=== PATIENT | female | born 1935 | race Caucasian/White ===

== ENCOUNTER → 2016-06-27 | Outpatient (CLI) | payer OTHER | LOC: BHFA 13:45 | PROVIDERS: ATTEND Internal Medicine Cardiovascular Disease | DX: Z01.810 Encounter for preprocedural cardiovascular examination (principal); I26.99 Other pulmonary embolism without acute cor pulmonale; I10 Essential (primary) hypertension; E78.5 Hyperlipidemia, unspecified; R60.9 Edema, unspecified ==

== ENCOUNTER 2016-07-24 08:15 | Inpatient (IN) | payer OTHER ==
[~2016-07-24 08:15] MED LIST: ACETAMINOPHEN 325 MG TAB PO ONE; CEFAZOLIN 2 GM/DEXTR 100 ML IV ONE; CHLORHEXIDINE GLUC HIBICLENS 118 ML BTL TP ONE; DEXAMETHASONE 4 MG/ML VIAL IVP ONE; FAMOTIDINE 20 MG TAB PO ONE; ROPI/epiNEPH/KETOROLAC JOINT COCKTAIL IU ONE; SKIN ADHESIVE (DERMABOND) 1 EACH TP ONE; TRANEXAMIC ACID 3,000 MG in NS 50 ML IRR ONE; TRANEXAMIC ACID 3,000 MG/50 ML BAG IRR ONE
[2016-07-24] MEDS ORDERED: CEFAZOLIN 2 GM/DEXTROSE/100 ML BAG IV ONE (10:13)
[2016-07-24] MEDS ORDERED: FAMOTIDINE 20 MG TAB ONE (10:13)
[2016-07-24] MEDS ORDERED: DEXAMETHASONE 4 MG/ML VIAL ONE (10:13)
[2016-07-24] MEDS ORDERED: LR 1,000 ML IV ONE (10:20)
[2016-07-24] MEDS ORDERED: MIDAZOLAM 2 MG/2 ML VIAL ONE (10:43)
[2016-07-24] MEDS ORDERED: diphenhydrAMINE 25 MG CAP PO PRN (11:30)
[2016-07-24] MEDS ORDERED: ACETAMINOPHEN 325 MG TAB PO PRN (11:30)
[2016-07-24] MEDS ORDERED: BISACODYL 10 MG SUPP PR PRN (11:30)
[2016-07-24] MEDS ORDERED: ONDANSETRON 4 MG/2 ML VIAL IVP PRN (11:30)
[2016-07-24] MEDS ORDERED: ONDANSETRON DISINTEGRATING 4 MG TAB PO PRN (11:30)
[2016-07-24] MEDS ORDERED: PROMETHAZINE HCL 25 MG/ML INJ IVP PRN (11:30)
[2016-07-24] MEDS ORDERED: DIPHENOXYLATE/ATROPINE LOMOTIL 1 TAB PO PRN (11:30)
[2016-07-24] MEDS ORDERED: LACTULOSE 20 GM/30 ML UDCUP PO PRN (11:30)
[2016-07-24] MEDS ORDERED: POLYETHYLENE GLYCOL 3350 17 GM PKT PO PRN (11:30)
[2016-07-24] MEDS ORDERED: TEMAZEPAM 15 MG CAP PO PRN (11:30)
[2016-07-24] MEDS ORDERED: PROMETHAZINE HCL 25 MG SUPPR PR PRN (11:30)
[2016-07-24] MEDS ORDERED: PHARMACY PAIN CONSULT 1 EA MISC PRN (11:30)
[2016-07-24] MEDS ORDERED: CYCLOBENZAPRINE 10 MG TAB PO PRN (11:30)
[2016-07-24] MEDS ORDERED: METOCLOPRAMIDE 10 MG/2 ML VIAL IVP PRN (11:30)
[2016-07-24] MEDS ORDERED: MAGNESIUM HYDROXIDE 30 ML UDCUP PO PRN (11:30)
[2016-07-24] MEDS ORDERED: PROPOFOL 200 MG/20 ML VIAL ONE (11:42)
--- NOTE | 2016-07-24 12:12 | POSTOPPROG ---
Post Op Note Date of Operation: 07/24/16 Surgeon: Gurmeet Cornell Crystal Cutter: Lisa Cornell PAc Anesthesiologist: Johan Anesthesia: Spinal Pre-op Diagnosis: R hip DJD Post-op Diagnosis: same Indication: pain Procedure: R AMRIT Findings: DJD hip Inf/Abcess present in the surg proc area at time of surgery?: No EBL: 100-500
[2016-07-24] MEDS ORDERED: ONDANSETRON 4 MG/2 ML VIAL ONE (12:34)
[2016-07-24] MEDS: oxyCODONE IR 5 MG TAB PO PRN ×3 (14:14→20:26)
[2016-07-24] MEDS: LR 1,000 ML IV SCH (14:14)
[2016-07-24] MEDS: CARVEDILOL 6.25 MG TAB PO SCH (17:46)
[2016-07-24] MEDS: ceFAZolin 2 GM/DEXTROSE 100 ML IV SCH (17:46)
[2016-07-24] MEDS: FUROSEMIDE 20 MG TAB PO SCH (20:16)
[2016-07-24] MEDS: FAMOTIDINE 20 MG TAB PO SCH (20:22)
[2016-07-24] MEDS: NITROFURANTOIN 100 MG CAP PO SCH (20:22)
[2016-07-24] MEDS: APIXABAN 5 MG TAB PO SCH (20:22)
[2016-07-24] MEDS: SENNOSIDES/DOCUSATE SODIUM TAB PO SCH (20:23)
[2016-07-24] MEDS: POTASSIUM CL 10 MEQ TAB PO SCH (21:12)
--- NOTE | 2016-07-24 22:51 | GOP ---
[f rep st] OPERATIVE REPORT DATE OF OPERATION: 07/24/2016 SURGEON: Amado Cornell MD STATISTICAL ASSISTANT: IBAN Geller ANESTHESIA: Spinal. PREOPERATIVE DIAGNOSIS: Right hip osteoarthritis. POSTOPERATIVE DIAGNOSIS: Right hip osteoarthritis. PROCEDURE PERFORMED: Right total hip arthroplasty. FINDINGS: ESTIMATED BLOOD LOSS: 200 cc. INDICATIONS: The patient has progressively worsening arthritis of the hip which has failed medical management. The patient understands the treatment options including continued non-operative care and has selected surgical intervention. The patient has decided to undergo total hip arthroplasty via the direct anterior approach, understanding the risks of the procedure including , but not limited to, neurovascular injury, infection, persistent pain, component wear and loosening, deep venous thrombosis, pulmonary embolism, limb length inequality, hip instability (including dislocation), and intra-operative fractures. DESCRIPTION OF PROCEDURE: After proper identification of the patient including verification and marking the surgical site, the patient was brought to the operating room and placed in the supine position. All bony prominences were well padded. Anesthesia was induced without complication and intravenous prophylactic antibiotics were administered prior to skin incision. The operative leg was placed in the Trumpf Arch table extension and the well leg in a Yellofin leg goldberg. The patient was prepped and draped in the usual sterile fashion. The C-arm was draped for intra-operative fluoroscopy to check acetabular position, femoral component position including leg length and femoral offset. Attention was then drawn to surgical exposure of the hip. An incision was made with a #10 Bard Bert blade starting 3 cm lateral and 3 cm distal to the anterior superior iliac spine measuring 8-10 cm and coursing distally toward the greater trochanter. The skin and subcutaneous tissues were divided sharply down to the fascia mike. The fascia mike was incised in line with the skin incision exposing the underlying tensor fascia mike muscle. The muscle was bluntly elevated from the fascia and the first extracapsular Cobra retractor was placed laterally at the junction of the superior femoral neck and greater trochanter. The lateral femoral circumflex vessels were identified, cauterized , and divided with the Aquamantys bipolar cautery. The deep investing fascia of the TFL was divided to allow proper mobilization of the muscle preventing damage during the retraction. The reflected head of the rectus femoris muscle was elevated off the anterior hip capsule and a medial Cobra retractor was placed just proximal to the lesser trochanter. The anterior capsulotomy was made sharply from the superolateral acetabulum to the saddle junction of the superior femoral neck and greater trochanter, then coursing inferomedial towards the lesser trochanter. The retractors were then placed in the intracapsular position for femoral neck osteotomy. Corresponding to pre-operative templating, the osteotomy was made with the oscillating saw carefully protecting the greater trochanter and soft tissues. The femoral head was removed from the acetabulum with a corkscrew and confirmed to be severely arthritic with exposed bone, deformity and osteophytes. Similar findings were confirmed in the acetabulum. The Arch table extension was then placed in 40 degrees external rotation. Attention was then drawn to the acetabular preparation. After placement of the anterior and posterior Cobra retractors outside the labrum and intracapsular, the circumferential labrum was removed sharply. The foveal contents were then removed and hemostasis obtained with cautery. The first reamer selected was sized using the removed femoral head. Reaming began with medialization and then commenced in 2 mm increments at 45 degrees of abduction and 15 degrees of anteversion using fluoroscopic navigation. Reaming ceased 1 mm less than the definitive acetabular component and corresponded to the pre-operative templating. The final acetabular component was inserted using fluoroscopy to achieve proper orientation yielding excellent purchase and stability in the acetabulum. The final acetabular liner was then placed and its seating confirmed. Attention was then turned to the femur. The Arch table extension was placed in extension and adduction, delivering the osteotomized femoral neck into the wound. A 2-pronged femoral elevator was placed at the calcar and another at the tip of the greater trochanter. The posterolateral capsule was released with cautery allowing mobilization of the femur lateral and anterior for preparation. The external rotators were visualized and preserved. A curette and rongeur were used to open the starting point for broaching. Serial broaching started with the #0 broach and ended with the broach that exhibited excellent fit in the proximal femur. A change in pitch during mallet strikes was accompanied by the inability to advance the broach any further. The trial reduction was performed and fluoroscopic navigation was utilized to check limb length. Adjustments were made to equalize limb length accordingly. After the final trials were accepted they were removed and the wound was copiously lavaged. The femoral component was seated to the same depth as the final broach and the femoral head was impacted onto the clean trunnion. The hip was then reduced for the final time and once more fluoroscopy was used to check that limb length equality was achieved. The wound was irrigated and closed in layers, the fascia mike with 2-0 Quill, the subcutaneous tissue with 2-0 Quill, and the skin with Dermabond. Sterile dressings were applied. Final sharps and sponge counts were accurate. The patient was then transferred to a hospital bed and brought to the recovery room in stable condition. IMPLANTS: Accolade II size 3 at 127, acetabular component a 52 mm Tritanium. The liner is a Trident X3 32 mm. The head is a Biolox Delta 32 mm +0. /[id number]/MODL MTDD
[2016-07-25] MEDS: LR 1,000 ML IV SCH (00:28)
[2016-07-25] MEDS: ceFAZolin 2 GM/DEXTROSE 100 ML IV SCH (00:29)
[2016-07-25] MEDS: oxyCODONE IR 5 MG TAB PO PRN (04:32)
[2016-07-25 05:51] LABS: HEMATOCRIT 30.3 % (38.0-47.0); HEMOGLOBIN 9.9 g/dL (12.6-16.3)
[2016-07-25 06:03] LABS: CALCIUM 8.8 mg/dL (8.5-10.4); CARBON DIOXIDE 23 mEq/l (22-31); CHLORIDE 110 mEq/L (97-110); CREATININE 1.1 mg/dL (0.6-1.0); GLOMERULAR FILTRATION RATE 48; GLUCOSE 87 mg/dL (70-100); SODIUM 140 mEq/L (134-144)
[2016-07-25 06:04] LABS: ANION GAP 7 mEq/L (8-16); POTASSIUM 3.8 mEq/L (3.5-5.2)
--- NOTE | 2016-07-25 09:11 | SOAPPROG ---
SOAP Progress Note Assessment/Plan: Assessment: Patient is doing well POD 1 s/p R AMRIT 1.Pain management: pain is well controlled on oral pain meds, encouraged patient to decrease oxycodone due to nausea issues. patient states pain is greatly improved compared to before surgery. 2.Anemia: level is expected initially postop. Asymptomatic. Cont to monitor for symptoms 3.VTE ppx: recommend resume eliquis daily. Cont THADDEUS mirelese and SCD 4. d/c planning: d/c to home with home health most likely tomorrow pending release from PT and improvement in nausea. If she improves today, may d/c to home this afternoon/evening. Spoke with ROSHAN Armenta, she will keep us posted. 5. nausea: recommend zofran. patient must be able to tolerate food and nausea resolved before d/c Plan: 07/25/16 09:08 07/25/16 09:10 Subjective: Em is having difficulty with nausea, states no pain, denies SOB and chest pain. Objective: Vital Signs Temp Pulse Resp BP Pulse Ox 36.4 C 66 17 118/56 L 93 07/25/16 07:52 07/25/16 07:52 07/25/16 07:52 07/25/16 07:52 07/25/16 07:52 Laboratory Results 07/25/16 04:17 07/25/16 04:17 07/24/16 07/25/16 07/26/16 05:59 05:59 05:59 Intake Total 1900 Output Total 1575 200 Balance 325 -200 RLE: incision dressing is clean and dry, NVI, +pf/df ICD10 Worksheet Patient Problems: Problems Problem Status Onset Primary localized osteoarthritis of right hip Acute Hypertension Chronic
[2016-07-25] MEDS: CARVEDILOL 6.25 MG TAB PO SCH ×2 (11:43→17:34)
[2016-07-25] MEDS: SENNOSIDES/DOCUSATE SODIUM TAB PO SCH ×2 (11:44→20:04)
[2016-07-25] MEDS: FAMOTIDINE 20 MG TAB PO SCH ×2 (11:44→20:04)
[2016-07-25] MEDS: POTASSIUM CL 10 MEQ TAB PO SCH ×2 (11:45→20:02)
[2016-07-25] MEDS: APIXABAN 5 MG TAB PO SCH ×2 (11:45→20:03)
[2016-07-25] MEDS: FUROSEMIDE 20 MG TAB PO SCH ×2 (11:45→20:02)
[2016-07-25] MEDS ORDERED: traMADol 50 MG TAB PO PRN (19:02)
[2016-07-25] MEDS: NITROFURANTOIN 100 MG CAP PO SCH (20:03)
[2016-07-26 05:31] LABS: HEMATOCRIT 30.2 % (38.0-47.0); HEMOGLOBIN 9.9 g/dL (12.6-16.3)
[2016-07-26 09:04] VITALS: PULSE 91; RESP 16; TEMP 97.7; O2SAT 93
[2016-07-26 09:39] VITALS: BP 98/49
--- NOTE | 2016-07-26 10:58 | PDFACE2FAC ---
Face to Face Encounter 1. I certify that this patient is under my care and that I, or a nurse practitioner or physician's trust manager assistant working with me, had a diav-uz-inni encounter that meets the physician [id number] encounter requirements with this patient on 07/26/16. 2. I certify that based on my findings, the following services are medically necessary home health services: [X Nursing] [X Physical Therapy] [ Speech-Language Pathology] 3. The medical condition and clinical findings that support the need for specialized skills, knowledge and judgement of the above services are: [s/p post R AMRIT using front wheel walker, limited ambulation] 4. I certify this patient is homebound* because [the patient's condition restricts their ability to leave their home except with the assistance of another individual or the aid of a supportive device.] must use front wheel walker I certify that this patient is confined to his/her home and needs intermittent halfway care, physical and/or speech therapy. This patient is under my care and I have authorized home health services. * Homebound is defined by Medicare as follows: absences from home require considerable and tacking effort and or for medical reasons or judaism services or are infrequent or of short duration when for other reasons*.
--- NOTE | 2016-07-26 11:01 | PDIAF ---
- Diagnosis Diagnosis: s/p R AMRIT due to hip OA Code Status: Full Code - Medication Management Discharge Medications: Medications to Continue on Transfer Carvedilol [Coreg (*)] 12.5 mg PO BIDMEAL 12/20/15 [Last Taken 07/24/16] amLODIPine BESYLATE [Norvasc 10 mg (*)] 10 mg PO HS 12/20/15 [Last Taken ] Apixaban [Eliquis] 5 mg PO BID #60 tablet 12/21/15 [Last Taken 07/20/16] Herbals/Supplements -Info Only 1 ea PO DAILY 01/25/16 [Last Taken 1 Week Ago] [place]-3 Fatty Acids [Fish Oil 1000 mg (*)] 1,000 mg PO HS 01/25/16 [Last Taken 07/24/16] Fenofibrate,Micronized [Fenofibrate] 134 mg PO DAILY 01/30/16 [Last Taken ] Nitrofurantoin Macrocrystal [Macrodantin 100 mg (*)] 100 mg PO HS 03/22/16 [ Last Taken 07/23/16] Furosemide [Lasix 20 MG (*)] 20 mg PO BID 06/27/16 [Last Taken 07/23/16] Multivitamins [Multivitamin (*)] 1 each PO DAILY 06/27/16 [Last Taken 1 Week Ago ] Potassium Cl [Klor-Con 10 meq (RX)] 10 meq PO BID 06/27/16 [Last Taken 07/23/16] Calcium Carb W/Vit D [Calcium Carb W/Vit D 500/200 (*)] 500 mg PO DAILY [Last Taken 1 Week Ago] Cholecalciferol Vit D3 [Vitamin D3 (*)] 1,000 units PO HS 06/28/16 [Last Taken 1 Week Ago] Docusate Sodium [Colace 100 MG (*)] 100 mg PO DAILY 06/28/16 [Last Taken ] Ferrous Sulfate [Ferrous Sulf 325 MG (*)] 325 mg PO HS 06/28/16 [Last Taken 1 Week Ago] Vitamin B Complex [Super B-50 Complex] 1 cap PO DAILY 06/28/16 [Last Taken 1 Week Ago] diphenhydrAMINE [Benadryl 25 MG (*)] 25 mg PO HS 06/28/16 [Last Taken 07/23/16] Acetaminophen [Tylenol 325mg (*)] 650 mg PO Q6HRS PRN #0 tab 07/26/16 [Last Taken Unknown] Sennosides/Docusate Sodium [Senokot-S] 1 - 2 tab PO BID #0 tab 07/26/16 [Last Taken Unknown] oxyCODONE IR [Oxycodone Ir (*)] 5 - 10 mg PO Q3HRS PRN #0 tab 07/26/16 [Last Taken Unknown] Discharge Medications: Refer to the Discharge Home Medication list for PRN reason. - Orders Services needed: Home Care, Registered Nurse, Physical Therapy Home Care Face to Face: I certify that this patient was under my care and that I had the required [id number] encounter meeting the encounter requirements on the discharge day. My findings support the fact that the patient is homebound as defined in CMS Chapter 7 Medicare Benefits Manual 30.1.1, The condition of the patient is such that there exists a normal inability to leave home and consequently, leaving home would require a considerable and taxing effort. Oxygen: patient uses oxygen at night Diet Recommendation: no restrictions on diet Diet Texture: Regular Texture Diet Stephane Stockings Discontinue Date: two weeks during the daytime Wound Care Instructions: see d/c instructions. remove navarro dressing in two weeks from surgery. cover for showers. call if drainage occurs Activity/Weight Bearing Restrictions: WBAT Equipment: FWW - Follow Up Care Current Providers and Referrals: Gurmeet Cornell MD [Medical Doctor] - 08/13/16 1:45 pm Candy Chan PA [Primary Care Provider] -
--- NOTE | 2016-07-26 11:02 | SOAPPROG ---
SOAP Progress Note Assessment/Plan: Assessment: Patient is doing well POD 2 s/p R AMRIT 1.Pain management: pain is well controlled on oral pain meds, encouraged patient to decrease oxycodone due to nausea issues. patient states pain is greatly improved compared to before surgery. 2.Anemia: level is expected initially postop. Asymptomatic. Cont to monitor for symptoms 3.VTE ppx: recommend resume eliquis daily. Cont THADDEUS hose and SCD 4. d/c planning: d/c to home with home health most likely today pending release from PT and improvement in nausea. 5. nausea: recommend zofran. resolved before d/c Plan: 07/25/16 09:08 07/25/16 09:10 07/26/16 11:01 Subjective: Em is doing better today, mild pain ,improved nausea, denies SOB, chest pain. Objective: Vital Signs Temp Pulse Resp BP Pulse Ox 36.5 C 91 16 98/49 L 93 07/26/16 09:03 07/26/16 09:03 07/26/16 09:03 07/26/16 09:39 07/26/16 09:03 Laboratory Results 07/26/16 04:16 07/25/16 04:17 07/25/16 07/26/16 07/27/16 05:59 05:59 05:59 Intake Total 1900 750 Output Total 1575 900 Balance 325 -150 RLE: incision dressing is renee gannon dry, NVI, +pf/df ICD10 Worksheet Patient Problems: Problems Problem Status Onset Primary localized osteoarthritis of right hip Acute Hypertension Chronic
[2016-07-26] MEDS: SENNOSIDES/DOCUSATE SODIUM TAB PO SCH (11:03)
[2016-07-26] MEDS: FAMOTIDINE 20 MG TAB PO SCH (11:04)
[2016-07-26] MEDS: APIXABAN 5 MG TAB PO SCH (11:05)
[2016-07-26] MEDS: POTASSIUM CL 10 MEQ TAB PO SCH (11:05)
[2016-07-26] MEDS: FUROSEMIDE 20 MG TAB PO SCH (11:06)
[2016-07-26] MEDS: CARVEDILOL 6.25 MG TAB PO SCH (11:12)
--- NOTE | 2016-07-26 16:41 | GDS ---
[f rep st] DISCHARGE SUMMARY ADMISSION DIAGNOSIS: Right hip osteoarthritis. DISCHARGE DIAGNOSIS: Right hip osteoarthritis. PROCEDURE: Right total hip arthroplasty. VTE PROPHYLAXIS: Aspirin recommended for 3 weeks daily. BRIEF DESCRIPTION OF HOSPITAL STAY: Patient was admitted for an elective joint arthroplasty. The p atient tolerated the procedure well and has passed physical therapy. The patient was given appropri ate antibiotic prophylaxis and venous thromboembolism prophylaxis. The patient's pain was well cont rolled on oral pain medication, patient was holding down food, and had urinated. Decision was made to discharge the patient. The patient was given post-operative prescriptions pre-operatively. PLAN: Please follow up as scheduled in Dr. Cornell's office in 3 weeks. /[id number]/MODL
== END 2016-07-26 12:06 | disposition home health service (06) | DRG 470 ==
LOC: F3N 09:24
PROVIDERS: ADMIT Orthopaedic Surgery; ATTEND Orthopaedic Surgery
PROC: 0SR904Z Replacement of Right Hip Joint with Ceramic on Polyethylene Synthetic Substitute, Open Approach (ICD-10-PCS; principal; 2016-07-24 11:15)
DX: M16.11 Unilateral primary osteoarthritis, right hip (principal); I10 Essential (primary) hypertension; Z86.711 Personal history of pulmonary embolism; Z79.01 Long term (current) use of anticoagulants; Z98.1 Arthrodesis status
CPT/HCPCS: 97116-GP; 97161-GP; 97165-GO; 97530-GP; G8978-GP-CK; G8979-GP-CI; G8980-GP-CI; G8987-GO-CI; G8988-GO-CI; G8989-GO-CI; J0171; J0690; J1100; J1885; J2250; J2405; J2704; J2795

== ENCOUNTER → 2016-08-05 | Outpatient (CLI) | payer OTHER | LOC: FIMAGING 10:17 | PROVIDERS: ATTEND Internal Medicine Nephrology | DX: N18.3 Chronic kidney disease, stage 3 (moderate) (principal); N28.89 Other specified disorders of kidney and ureter ==

== ENCOUNTER → 2016-10-22 | Outpatient (CLI) | payer OTHER | LOC: FIMAGING 14:03 | DX: Z12.31 Encounter for screening mammogram for malignant neoplasm of breast (principal) | CPT/HCPCS: G0202 ==

== ENCOUNTER → 2016-11-12 | Outpatient (CLI) | payer OTHER | LOC: FCPNEURO 20:00 | PROVIDERS: ATTEND Psychiatry & Neurology Sleep Medicine | DX: G47.34 Idiopathic sleep related nonobstructive alveolar hypoventilation (principal) ==

== ENCOUNTER → 2016-11-27 | Outpatient (CLI) | payer OTHER | LOC: FLAB 10:19 | PROVIDERS: ATTEND Physician Assistant Surgical | DX: Z98.1 Arthrodesis status (principal); Z96.643 Presence of artificial hip joint, bilateral ==

== ENCOUNTER → 2016-12-31 | Outpatient (CLI) | payer OTHER | LOC: BMCIMAGING 13:11 | PROVIDERS: ATTEND Family Medicine | DX: S80.01XA Contusion of right knee, initial encounter (principal) ==

== ENCOUNTER 2017-01-13 19:48 | Emergency (ER) | payer OTHER ==
--- NOTE | 2017-01-13 20:34 | EDPHY ---
H & P Stated Complaint: pt says she fell causing dehiscence of existing suture on R knee, on elequi Source: Patient Exam Limitations: No limitations - Personal History Current Tetanus Diphtheria and Acellular Pertussis (TDAP): Yes Tetanus Vaccine Date: 2013 - Medical/Surgical History Hx Asthma: No Hx Chronic Respiratory Disease: No Hx Diabetes: No Hx Cardiac Disease: Yes Hx Renal Disease: No Hx Cirrhosis: No Hx Alcoholism: No Hx HIV/AIDS: No Hx Splenectomy or Spleen Trauma: No Other PMH: HTN, CVA, Hyperlipidemia,ELEV TRIGLYCERIDE, STROKE- 30 year ago, no defecits. TONSILS JANAY APPY RECTO/CYSTOCOELE, ACL- reconstruction, SPINAL STENOSIS, recent PE's - Social History Smoking Status: Never smoked Time Seen by Provider: 01/13/17 20:29 HPI/ROS: CHIEF COMPLAINT: Right knee laceration HISTORY OF PRESENT ILLNESS: The patient presents to the ED with complaints of recurrent will a laceration to her right knee. The patient reportedly tripped and fell landing on her right knee which caused a recently repaired laceration to open. The patient did not strike her head or lose consciousness. She is on Eliquis. She has no complaints of neck pain or headache. The patient reports her tetanus shot is up-to-date. The patient denies additional acute complaints. The patient has been ambulatory since the fall. She has mild pain over her patella. REVIEW OF SYSTEMS: A comprehensive 10 point review of systems is otherwise negative aside from elements mentioned in the history of present illness. (Darian Gant) - Physical Exam Exam: General Appearance: Alert, no distress Head: Atraumatic Eyes: Pupils equal, round, reactive ENT, Mouth: No hemotympanum, no oral trauma Neck: Nontender, trachea midline Respiratory: No chest wall tender, subcutaneous air, lungs clear bilaterally Cardiovascular: Regular rate and rhythm Abdomen: Abdomen is soft and nontender, pelvis stable Skin: 8 cm laceration over right patella, no deeper involvement of joint present upon visualization. Back: No midline T/L/S pain Extremities: Tenderness to palpation over the right patella Neurological: A&Ox3, normal motor function, normal sensory exam (Darian Gant) Constitutional: Initial Vital Signs Temperature (C) 97.7 F 01/13/17 19:57 Heart Rate 71 01/13/17 19:57 Respiratory Rate 16 01/13/17 19:57 Blood Pressure 144/80 H 01/13/17 19:57 O2 Sat (%) 91 L 01/13/17 19:57 O2 Delivery Mode Room Air Allergies/Adverse Reactions: minoxidil [Minoxidil] Allergy (Severe, Verified 03/21/16 16:12) EDEMA codeine [Codeine] Allergy (Intermediate, Verified 03/21/16 16:12) Vomiting morphine Allergy (Intermediate, Verified 03/21/16 16:12) Vomiting Sulfa (Sulfonamide Antibiotics) Allergy (Intermediate, Verified 03/21/16 16:12) Vomiting scallops Allergy (Verified 07/04/16 10:21) Home Medications: Medication Instructions Recorded Carvedilol [Coreg (*)] 12.5 mg PO BIDMEAL 12/20/15 Apixaban [Eliquis] 5 mg PO BID #60 tablet 12/21/15 Herbals/Supplements -Info Only 1 ea PO DAILY 01/25/16 [place]-3 Fatty Acids [Fish Oil 1000 1,000 mg PO HS 01/25/16 mg (*)] Multivitamins [Multivitamin (*)] 1 each PO DAILY 06/27/16 Calcium Carb W/Vit D [Calcium Carb 500 mg PO DAILY 06/28/16 W/Vit D 500/200 (*)] Cholecalciferol Vit D3 [Vitamin D3 1,000 units PO HS 06/28/16 (*)] Docusate Sodium [Colace 100 MG (*)] 100 mg PO DAILY 06/28/16 Ferrous Sulfate [Ferrous Sulf 325 325 mg PO HS 06/28/16 MG (*)] Vitamin B Complex [Super B-50 1 cap PO DAILY 06/28/16 Complex] diphenhydrAMINE [Benadryl 25 MG 25 mg PO HS 06/28/16 (*)] Acetaminophen [Tylenol 325mg (*)] 650 mg PO Q6HRS PRN #0 tab 07/26/16 Sennosides/Docusate Sodium 1 - 2 tab PO BID #0 tab 07/26/16 [Senokot-S] Hydrochlorothiazide 01/13/17 Spironolactone 01/13/17 Medical Decision Making Procedures: My involvement the care this patient is solely for the procedure. Please see the note of Dr. Gant for all other aspects of care. PROCEDURE: Laceration repair Consent: Verbal Location: Right knee, anterior Length of repair: 8 cm Complexity: Complex Layer involvement: 2 layer Anesthesia: Local, 1% lidocaine administered by Dr. Gant Irrigation: Extensive Debridement: None Procedure description: Following good anesthesia, the wound was copiously irrigated. Wound bed was explored and there is no foreign body noted. Wound borders were approximated well with good hemostasis. Tolerated well without complication. Suture/Staple material: Subcutaneous layer: 5-0 Vicryl, 10 running sutures. External layer: 4-0 Prolene, 12 horizontal mattress sutures Wound care: Routine as discussed Suture/Staple removal: 10 Days (Shree Cardenas) ED Course/Re-evaluation: The patient presents to the ED for evaluation of a laceration to her right knee. The patient's laceration was anesthetized and copiously irrigated by myself. There is no evidence of an open joint or obvious fracture. The patient had repair of her laceration under my supervision by the IBAN Guerra. The patient is ambulatory with normal range of motion of the knee. No clinical evidence of fracture. (Darian Gant) Differential Diagnosis: Differential diagnosis considered includes fracture, sprain, dislocation, neurovascular injury, open joint, laceration (Darian Gant) Departure - Departure Disposition: Home, Routine, Self-Care Clinical Impression: Laceration of right knee Qualifiers: Encounter type: initial encounter Qualified Code(s): S81.011A - Laceration without foreign body, right knee, initial encounter Condition: Good Instructions: Laceration (ED) Additional Instructions: 1. Apply antibiotic ointment to sutures twice daily for the next 10 days. 2. Return to the ED in 14 days for suture removal. 3. Return to the ED sooner for increasing pain, redness, swelling, fever or other concerns. Referrals: Candy Chan PA [Primary Care Provider] - As per Instructions
[2017-01-13 22:01] VITALS: BP 156/86; PULSE 66; RESP 18; TEMP 97.9; O2SAT 93
== END 2017-01-13 22:02 | disposition home or self-care (01) ==
PROC: 0HQKXZZ Repair Right Lower Leg Skin, External Approach (ICD-10-PCS; principal; 2017-01-13)
DX: S81.011A Laceration without foreign body, right knee, initial encounter (principal); I10 Essential (primary) hypertension; Z86.73 Personal history of transient ischemic attack (TIA), and cerebral infarction without residual deficits; W01.0XXA Fall on same level from slipping, tripping and stumbling without subsequent striking against object, initial encounter; Y99.8 Other external cause status; Y93.89 Activity, other specified
CPT/HCPCS: 12034; 99282; L1830

== ENCOUNTER → 2017-01-15 | Outpatient (CLI) | payer OTHER | LOC: BHFA 14:45 | PROVIDERS: ATTEND Internal Medicine Cardiovascular Disease | DX: I10 Essential (primary) hypertension (principal) ==

== ENCOUNTER → 2017-02-03 | Outpatient (CLI) | payer OTHER | LOC: FIMAGING 16:52 | PROVIDERS: ATTEND Physician Assistant | DX: M25.561 Pain in right knee (principal) ==

== ENCOUNTER → 2017-03-18 | Outpatient (CLI) | payer OTHER | LOC: FIMAGING 12:02 | PROVIDERS: ATTEND Internal Medicine Pulmonary Disease | DX: R06.00 Dyspnea, unspecified (principal); R09.02 Hypoxemia ==

== ENCOUNTER → 2017-11-12 | Outpatient (CLI) | payer OTHER | LOC: FIMAGING 12:51 | PROVIDERS: ATTEND Physician Assistant | DX: Z12.31 Encounter for screening mammogram for malignant neoplasm of breast (principal) ==

== ENCOUNTER → 2018-06-18 | Outpatient (CLI) | payer OTHER ==
[~2018-06-18] MED LIST changes: -ACETAMINOPHEN 325 MG TAB PO ONE; -CEFAZOLIN 2 GM/DEXTR 100 ML IV ONE; -CHLORHEXIDINE GLUC HIBICLENS 118 ML BTL TP ONE; -DEXAMETHASONE 4 MG/ML VIAL IVP ONE; -FAMOTIDINE 20 MG TAB PO ONE; +IOHEXOL 300 mgI/ML (OMNIPAQUE) 150 ML BTL IV ONE; -ROPI/epiNEPH/KETOROLAC JOINT COCKTAIL IU ONE; -SKIN ADHESIVE (DERMABOND) 1 EACH TP ONE; -TRANEXAMIC ACID 3,000 MG in NS 50 ML IRR ONE; -TRANEXAMIC ACID 3,000 MG/50 ML BAG IRR ONE
== END ==
LOC: FIMAGING 08:31
PROVIDERS: ATTEND Physician Assistant Medical
DX: N20.0 Calculus of kidney (principal); K83.8 Other specified diseases of biliary tract; Z96.643 Presence of artificial hip joint, bilateral; Z98.1 Arthrodesis status
CPT/HCPCS: 74178; Q9967; 82565-PO

== ENCOUNTER → 2018-08-12 | Outpatient (CLI) | payer OTHER | LOC: FIMAGING 16:41 | PROVIDERS: ATTEND Physician Assistant | DX: J98.4 Other disorders of lung (principal) ==

== ENCOUNTER 2018-10-15 01:17 | Emergency (ER) | payer OTHER | END 2018-10-15 04:18 | disposition home or self-care (01) ==

== ENCOUNTER → 2018-10-28 | Outpatient (CLI) | payer OTHER | LOC: FIMAGING 12:56 ==

== ENCOUNTER → 2018-10-29 | Outpatient (CLI) | payer OTHER | LOC: FCPNEURO 20:00 ==